=== PATIENT | male | born 1960 | race Caucasian/White ===

== ENCOUNTER 2023-06-10 07:44 | Emergency (ER) | payer BC, MEDICARE ==
[~2023-06-10] VITALS: Ht 170.2 cm; Wt 97.5 kg
[2023-06-10 07:46] VITALS: O2SAT 100
[2023-06-10] MEDS ORDERED: LIDOCAINE HCL 1% LOCAL INJ 20 ML VIAL INJ ONE (08:15)
[2023-06-10] MEDS ORDERED: TETANUS/DIPHTHERIA TOX ADULT 0.5 ML SYR ONE ×2 (08:26→13:38)
[2023-06-10] MEDS: TETANUS/DIPHTHERIA TOX ADULT 0.5 ML SYR IM ONE (08:35)
[2023-06-10] MEDS ORDERED: LIDOCAINE 1% W/EPINEPHRINE 20 ML VIAL ONE ×2 (08:44→13:38)
== END 2023-06-10 10:38 | disposition home or self-care (01) ==
LOC: ER 08:05
DX: S01.01XA Laceration without foreign body of scalp, initial encounter (principal); W01.198A Fall on same level from slipping, tripping and stumbling with subsequent striking against other object, initial encounter; Y93.01 Activity, walking, marching and hiking; Y92.89 Other specified places as the place of occurrence of the external cause; G20.A1 Parkinson's disease without dyskinesia, without mention of fluctuations
CPT/HCPCS: 70450; 90471; 90714; 99283

== ENCOUNTER 2023-12-23 13:06 | Inpatient (IN) | payer MEDICARE ==
[~2023-12-23] VITALS: Ht 170.2 cm; Wt 97.5 kg
[2023-12-23 13:50] VITALS: PULSE 86; RESP 16; TEMP 98.4
[2023-12-23] MEDS ORDERED: SODIUM CHLORIDE FLUSH 10 ML SYR INJ PRN (16:30)
[2023-12-23 16:47] LABS: BASOPHILS % 0.2 % (0.0-1.0); EOSINOPHILS % 0.3 % (0.0-6.0); HEMOGLOBIN 12.6 g/dL (14.0-18.0); LYMPHOCYTES # (AUTO) 0.9 (1.0-3.2); LYMPHOCYTES % 9.1 % (18.0-39.1); MEAN CORPUSCULAR HGB CONC 31.5 g/dL (31-35); MEAN CORPUSCULAR VOLUME 95.2 fL (81-99); MONOCYTES # (AUTO) 0.8 (0.2-0.8); MONOCYTES % 8.2 % (4.4-11.3); NEUTROPHILS # (AUTO) 8.2 (2.1-6.9); PLATELET COUNT 220 x10e3/uL (140-360); RED CELL DISTRIBUTION WIDTH 13.1 % (11.7-14.4)
[2023-12-23 17:05] LABS: ALBUMIN 4.2 g/dL (3.5-5.0); ALBUMIN/GLOBULIN RATIO 1.4 (0.8-2.0); ALKALINE PHOSPHATASE 66 IU/L (40-150); ANION GAP 16.6 mmol/L (8-16); BILIRUBIN,TOTAL 0.2 mg/dL (0.2-1.2); BLOOD UREA NITROGEN 24 mg/dL (7-26); BUN/CREATININE RATIO 28 (6-25); CALCIUM 9.3 mg/dL (8.4-10.2); CARBON DIOXIDE 23 mmol/L (22-29); CHLORIDE 102 mmol/L (98-107); CREATININE, SERUM 0.87 mg/dL (0.72-1.25); EST GLOMERULAR FILTRATION RATE 96 ML/MIN (>=60); GLUCOSE 128 mg/dL (74-118); POTASSIUM 4.6 mmol/L (3.5-5.1); SODIUM 137 mmol/L (136-145); TOTAL PROTEIN 7.3 g/dL (6.5-8.1)
[2023-12-23 17:12] LABS: ALANINE AMINOTRANSFERASE < 6 IU/L (0-55)
[2023-12-23 17:15] VITALS: BP 117/85; O2SAT 100
[2023-12-23 17:17] VITALS: BP 118/86; PULSE 86; RESP 23; TEMP 97.9; O2SAT 100
[2023-12-23] MEDS: TRAMADOL HCL 50 MG TAB PO ONE (17:38)
[2023-12-23] MEDS ORDERED: HYDRALAZINE HCL 20 MG/ML VIAL IV PRN (19:00)
[2023-12-23] MEDS ORDERED: POLYETHYLENE GLYCOL 3350 17 GM PACK PO PRN (19:00)
[2023-12-23] MEDS ORDERED: ACETAMINOPHEN 325 MG TAB PO PRN (19:00)
[2023-12-23] MEDS ORDERED: RYTARY ER 48.71 EACH PO (19:05)
[2023-12-23] MEDS ORDERED: REXULTI3 MG PO (19:05)
[2023-12-23] MEDS ORDERED: HYDROXYZINE HCL50 MG PO (19:05)
[2023-12-23] MEDS ORDERED: ARICEPT5 MG PO (19:05)
[2023-12-23] MEDS ORDERED: SERTRALINE HCL100 MG PO (19:05)
[2023-12-23] MEDS ORDERED: DEPAKOTE ER250 MG PO (19:05)
[2023-12-23] MEDS ORDERED: TART CHERRY CA1 EACH PO (19:16)
[2023-12-23] MEDS ORDERED: MIDODRINE HCL5 MG PO (19:16)
[2023-12-23] MEDS ORDERED: LUNESTA2 MG PO (19:16)
[2023-12-23] MEDS ORDERED: OMEPRAZOLE40 MG PO (19:16)
[2023-12-23] MEDS ORDERED: MELATONIN3 MG PO (19:16)
[2023-12-23] MEDS: FAMOTIDINE 20 MG TAB PO SCH (19:54)
[2023-12-23 20:00] VITALS: BP 114/76; PULSE 85; RESP 16; TEMP 99.3; O2SAT 98
[2023-12-23 20:30] VITALS: BP 114/76; PULSE 85; RESP 16; TEMP 99.3; O2SAT 98
[2023-12-23] MEDS: MIDODRINE HCL 5 MG TABLET PO SCH (21:26)
[2023-12-23] MEDS: HYDROXYZINE HCL 25 MG TAB PO SCH (21:27)
[2023-12-23] MEDS: MELATONIN 3 MG TAB PO SCH (21:29)
[2023-12-24] VITALS (8 sets, daily range): BP systolic 104–135; BP diastolic 66–87; PULSE 75–85; RESP 16–20; TEMP 97.4–99.1; O2SAT 91–98
[2023-12-24] MEDS: PANTOPRAZOLE SOD 40 MG TABEC PO SCH (05:44)
[2023-12-24] MEDS: SERTRALINE HCL 50 MG TAB PO SCH (05:44)
[2023-12-24] MEDS: DONEPEZIL HCL 5 MG TAB PO SCH (05:44)
[2023-12-24] MEDS: DIVALPROEX SODIUM 250 MG TAB...DR PO SCH (05:44)
[2023-12-24 05:46] LABS: BASOPHILS % 0.1 % (0.0-1.0); EOSINOPHILS # (AUTO) 0.1 (0.0-0.4); EOSINOPHILS % 0.8 % (0.0-6.0); HEMOGLOBIN 10.8 g/dL (14.0-18.0); LYMPHOCYTES % 11.5 % (18.0-39.1); MEAN CORPUSCULAR HEMOGLOBIN 29.3 pg (28-32); MEAN CORPUSCULAR HGB CONC 30.9 g/dL (31-35); MEAN CORPUSCULAR VOLUME 94.9 fL (81-99); MONOCYTES % 11.8 % (4.4-11.3); NEUTROPHILS # (AUTO) 6.2 (2.1-6.9); NEUTROPHILS % 75.4 % (38.7-80.0); PLATELET COUNT 191 x10e3/uL (140-360); RED BLOOD COUNT 3.69 x10e6/uL (4.3-5.7); RED CELL DISTRIBUTION WIDTH 12.6 % (11.7-14.4); WHITE BLOOD COUNT 8.25 x10e3/uL (4.8-10.8)
[2023-12-24 06:11] LABS: ALANINE AMINOTRANSFERASE < 6 IU/L (0-55); ALBUMIN 3.5 g/dL (3.5-5.0); ALBUMIN/GLOBULIN RATIO 1.2 (0.8-2.0); ALKALINE PHOSPHATASE 57 IU/L (40-150); BILIRUBIN,TOTAL 0.4 mg/dL (0.2-1.2); BLOOD UREA NITROGEN 24 mg/dL (7-26); BUN/CREATININE RATIO 31 (6-25); CALCIUM 8.8 mg/dL (8.4-10.2); CARBON DIOXIDE 25 mmol/L (22-29); CHLORIDE 103 mmol/L (98-107); CHOL/HDL RATIO 7.4 (3.9-4.7); CHOLESTEROL 244 MD/DL (0-199); CREATININE, SERUM 0.77 mg/dL (0.72-1.25); EST GLOMERULAR FILTRATION RATE 99 ML/MIN (>=60); GLUCOSE 118 mg/dL (74-118); HDL CHOLESTEROL 33 MG/DL (40-60); LDL CHOLESTEROL 161 MG/DL (60-130); MAGNESIUM 1.8 MG/DL (1.3-2.1); PHOSPHORUS 2.6 MG/DL (2.3-4.7); SODIUM 136 mmol/L (136-145); TOTAL PROTEIN 6.5 g/dL (6.5-8.1); TRIGLYCERIDES 251 MG/DL (0-149)
[2023-12-24 06:32] LABS: FREE T4 (FREE THYROXINE) 1.03 ng/dL (0.8-1.8); THYROID STIMULATING HORMONE 1.634 uIU/mL (0.350-4.940)
[2023-12-24] MEDS: DOCUSATE SODIUM 100 MG CAP PO SCH (08:41)
[2023-12-24] MEDS: Morphine 2mg Syringe 2 MG/ML SYR IV PRN (08:43)
[2023-12-24] MEDS: CARBIDOPA PO SCH (21:00)
[2023-12-24] MEDS: LEVODOPA PO SCH (21:00)
[2023-12-24] MEDS: ZOLPIDEM TARTRATE 5 MG TAB PO SCH (21:14)
[2023-12-24] MEDS: ONDANSETRON HCL INJ 2MG/ML 2ML 2 MG/ML VIAL IV PRN (21:33)
[2023-12-25] VITALS (10 sets, daily range): BP systolic 101–119; BP diastolic 62–79; PULSE 66–76; RESP 16–21; TEMP 98–98.5; O2SAT 95–99
[2023-12-25] MEDS: VIT C PO SCH (08:45)
[2023-12-25] MEDS: GRP E PO SCH (08:45)
[2023-12-25] MEDS: CELERY EX PO SCH (08:45)
[2023-12-25] MEDS: [UNRECOGNIZED DRUG - OTHER] PO SCH (08:45)
[2023-12-25] MEDS: BREXPIPRAZOLE 3 MG PO SCH (08:45)
[2023-12-25] MEDS: CHERRY PO SCH (08:45)
[2023-12-25] MEDS: SIMVASTATIN 20 MG TAB PO SCH (21:16)
[2023-12-26] VITALS (10 sets, daily range): BP systolic 103–139; BP diastolic 70–83; PULSE 66–87; RESP 16–23; TEMP 98.3–98.8; O2SAT 94–98
[2023-12-26] MEDS: HYDROCODONE/APAP 5MG-325MG TAB PO PRN (04:13)
[2023-12-26] MEDS: LIDOCAINE 4% PATCH TP SCH (16:45)
[2023-12-27] VITALS (9 sets, daily range): BP systolic 98–148; BP diastolic 69–101; PULSE 64–79; RESP 17–18; TEMP 97.7–98.5; O2SAT 96–99
[2023-12-27 11:19] LABS: BASOPHILS % 0.5 % (0.0-1.0); EOSINOPHILS # (AUTO) 0.3 (0.0-0.4); EOSINOPHILS % 5.1 % (0.0-6.0); HEMATOCRIT 36.1 % (38.2-49.6); HEMOGLOBIN 11.7 g/dL (14.0-18.0); LYMPHOCYTES % 17.7 % (18.0-39.1); MEAN CORPUSCULAR HGB CONC 32.4 g/dL (31-35); MEAN CORPUSCULAR VOLUME 92.6 fL (81-99); MONOCYTES # (AUTO) 0.6 (0.2-0.8); MONOCYTES % 10.7 % (4.4-11.3); NEUTROPHILS # (AUTO) 3.9 (2.1-6.9); NEUTROPHILS % 65.7 % (38.7-80.0); PLATELET COUNT 191 x10e3/uL (140-360); RED CELL DISTRIBUTION WIDTH 12.6 % (11.7-14.4); RETICULOCYTE % 1.8 % (0.8-2.2); WHITE BLOOD COUNT 5.87 x10e3/uL (4.8-10.8)
[2023-12-27 11:43] LABS: % IRON SATURATION 34 % (15-50); ANION GAP 15.4 mmol/L (8-16); BLOOD UREA NITROGEN 25 mg/dL (7-26); BUN/CREATININE RATIO 32 (6-25); CALCIUM 9.4 mg/dL (8.4-10.2); CARBON DIOXIDE 25 mmol/L (22-29); CHLORIDE 100 mmol/L (98-107); CREATININE, SERUM 0.78 mg/dL (0.72-1.25); EST GLOMERULAR FILTRATION RATE 99 ML/MIN (>=60); GLUCOSE 121 mg/dL (74-118); IRON 93 ug/dL (65-175); POTASSIUM 4.4 mmol/L (3.5-5.1); SODIUM 136 mmol/L (136-145); TOTAL IRON BINDING CAPACITY 276 ug/dL (261-478); TRANSFERRIN 197 mg/dL (174-364)
[2023-12-27 12:04] LABS: FERRITIN < 1.00 ng/mL (21.81-274.66)
[2023-12-27 13:01] LABS: FOLATE > 40.0 ng/mL (7.0-15.4)
[2023-12-28] VITALS (9 sets, daily range): BP systolic 103–122; BP diastolic 73–85; PULSE 64–79; RESP 17–19; TEMP 97.8–98.5; O2SAT 95–99
[2023-12-29] VITALS (10 sets, daily range): BP systolic 102–133; BP diastolic 69–90; PULSE 65–73; RESP 17–21; TEMP 97.5–98.2; O2SAT 93–99
[2023-12-30] VITALS: BP 102/67; PULSE 64; RESP 18; TEMP 97.7; O2SAT 98
[2023-12-30 04:00] VITALS: BP 123/74; PULSE 63; RESP 18; TEMP 97.6; O2SAT 97
[2023-12-30 07:08] VITALS: PULSE 78; RESP 20; O2SAT 96
[2023-12-30 07:49] VITALS: BP 124/71; PULSE 58; RESP 19; TEMP 98.3; O2SAT 97
[2023-12-30] MEDS: DOCUSATE SODIUM 100 MG CAP PO SCH (08:48)
[2023-12-30 08:49] VITALS: BP 124/71; PULSE 58; RESP 19; TEMP 98.3; O2SAT 97
[2023-12-30] MEDS ORDERED: ONDANSETRON ODT4 MG PO (09:37)
[2023-12-30] MEDS ORDERED: SIMVASTATIN20 MG PO (09:37)
[2023-12-30] MEDS ORDERED: HYDROCODON-ACE1 EA11 PO (09:37)
[2023-12-30] MEDS ORDERED: MIRALAX17 GM PO (09:37)
[2023-12-30] MEDS ORDERED: ACETAMINOPHEN325 M1 PO (09:37)
[2023-12-30] MEDS ORDERED: Docusate Sodium PO (09:37)
[2023-12-30] MEDS ORDERED: Lidocaine Patch TP (09:37)
[2023-12-30 11:14] VITALS: BP 105/71; PULSE 63; RESP 19; TEMP 98.2; O2SAT 96
[2023-12-30 11:36] LABS: BASOPHILS % 0.6 % (0.0-1.0); EOSINOPHILS # (AUTO) 0.3 (0.0-0.4); EOSINOPHILS % 4.3 % (0.0-6.0); HEMATOCRIT 40.1 % (38.2-49.6); HEMOGLOBIN 12.7 g/dL (14.0-18.0); LYMPHOCYTES # (AUTO) 1.7 (1.0-3.2); LYMPHOCYTES % 24.6 % (18.0-39.1); MEAN CORPUSCULAR HEMOGLOBIN 29.5 pg (28-32); MEAN CORPUSCULAR HGB CONC 31.7 g/dL (31-35); MONOCYTES # (AUTO) 0.6 (0.2-0.8); MONOCYTES % 8.2 % (4.4-11.3); NEUTROPHILS # (AUTO) 4.2 (2.1-6.9); PLATELET COUNT 258 x10e3/uL (140-360); RED BLOOD COUNT 4.31 x10e6/uL (4.3-5.7); RED CELL DISTRIBUTION WIDTH 12.2 % (11.7-14.4); WHITE BLOOD COUNT 6.82 x10e3/uL (4.8-10.8)
[2023-12-30 12:03] LABS: INR 0.91; PROTHROMBIN TIME 12.8 seconds (11.9-14.5)
[2023-12-30 12:13] LABS: ALBUMIN 3.7 g/dL (3.5-5.0); ALBUMIN/GLOBULIN RATIO 0.9 (0.8-2.0); ALKALINE PHOSPHATASE 75 IU/L (40-150); ANION GAP 15.5 mmol/L (8-16); BILIRUBIN,TOTAL 0.4 mg/dL (0.2-1.2); BLOOD UREA NITROGEN 28 mg/dL (7-26); BUN/CREATININE RATIO 34 (6-25); CALCIUM 9.5 mg/dL (8.4-10.2); CARBON DIOXIDE 24 mmol/L (22-29); CHLORIDE 101 mmol/L (98-107); CREATININE, SERUM 0.82 mg/dL (0.72-1.25); EST GLOMERULAR FILTRATION RATE 97 ML/MIN (>=60); GLUCOSE 114 mg/dL (74-118); POTASSIUM 4.5 mmol/L (3.5-5.1); SODIUM 136 mmol/L (136-145); TOTAL PROTEIN 7.6 g/dL (6.5-8.1)
[2023-12-30 12:18] LABS: ALANINE AMINOTRANSFERASE < 6 IU/L (0-55)
== END 2023-12-30 13:40 | DRG 552 ==
LOC: ER 16:04 → ERHOLD 16:21 → MED/SURG 16:59 → OBSVTOIN 12-25 07:59
PROVIDERS: ADMIT Internal Medicine; ATTEND Internal Medicine
DX: S22.089A Unspecified fracture of T11-T12 vertebra, initial encounter for closed fracture (principal); I95.2 Hypotension due to drugs; T42.8X5A Adverse effect of antiparkinsonism drugs and other central muscle-tone depressants, initial encounter; S50.11XA Contusion of right forearm, initial encounter; S51.012A Laceration without foreign body of left elbow, initial encounter; Z74.09 Other reduced mobility; W01.0XXA Fall on same level from slipping, tripping and stumbling without subsequent striking against object, initial encounter; Y92.013 Bedroom of single-family (private) house as the place of occurrence of the external cause; G20.A1 Parkinson's disease without dyskinesia, without mention of fluctuations; R26.2 Difficulty in walking, not elsewhere classified; E78.5 Hyperlipidemia, unspecified; G47.00 Insomnia, unspecified; R73.9 Hyperglycemia, unspecified; D64.9 Anemia, unspecified; F41.8 Other specified anxiety disorders; K21.9 Gastro-esophageal reflux disease without esophagitis; Z66 Do not resuscitate; Z91.81 History of falling; Z87.891 Personal history of nicotine dependence; Z96.82 Presence of neurostimulator; Z79.899 Other long term (current) drug therapy
CPT/HCPCS: 36415; 70450; 72125; 72128; 72131; 78315; 80048; 80053; 80061; 82607; 82728; 82746; 83036; 83540; 83735; 84100; 84439; 84443; 84466; 85025; 85045; 85610; 94799; 99252; 99284; A9503; G0378; J2270; J2405; J3410

== ENCOUNTER → 2024-01-02 | Outpatient (REF) | payer MEDICARE ==
[~2024-01-02] MED LIST: ACETAMINOPHEN 1000 MG/100 ML 100 ML IV ONE; ACETAMINOPHEN325 M1 PO; ARICEPT5 MG PO; DEPAKOTE ER250 MG PO; Docusate Sodium PO; FAMOTIDINE 20 MG/2 ML VIAL IV ONE; FENTANYL CITRATE/PF 100MCG/2 ML INJ ONE; HYDROCODON-ACE1 EA11 PO; HYDROXYZINE HCL50 MG PO; LIDOCAINE HCL 1% LOCAL INJ 20 ML VIAL ONE; LIDOCAINE HCL 2% LOCAL INJ 5 ML SDV VIAL INJ ONE; LUNESTA2 MG PO; Lidocaine Patch TP; MELATONIN3 MG PO; MIDAZOLAM HCL 2 MG/2 ML VIAL ONE; MIDODRINE HCL5 MG PO; MIRALAX17 GM PO; OMEPRAZOLE40 MG PO; ONDANSETRON ODT4 MG PO; PROPOFOL IV EMULSION 10 MG/ML 20 ML VIAL ONE; REXULTI3 MG PO; ROCURONIUM BROMIDE 1 ML IV ONE; RYTARY ER 48.71 EACH PO; SERTRALINE HCL100 MG PO; SIMVASTATIN20 MG PO; SODIUM CHLORIDE 0.9% 500ML 500 ML ONE; SUGAMMADEX SODIUM 200 MG/2 ML VIAL IV ONE; TART CHERRY CA1 EACH PO
[2024-01-02] MEDS: FENTANYL CITRATE/PF 100MCG/2 ML INJ ONE (12:11)
[2024-01-02 13:00] VITALS: BP 142/79; PULSE 68; RESP 18; O2SAT 97
== END ==
LOC: OR 08:11
PROVIDERS: ATTEND Internal Medicine
DX: S22.080A Wedge compression fracture of T11-T12 vertebra, initial encounter for closed fracture (principal); W01.0XXA Fall on same level from slipping, tripping and stumbling without subsequent striking against object, initial encounter; G20.A1 Parkinson's disease without dyskinesia, without mention of fluctuations
CPT/HCPCS: 22513; 36415; 82948; 88305; 93005; J0131; J0690; J2003 ×2; J2250; J2704; J3010; J7040; C1062